=== PATIENT | male | born 1940 | race Caucasian/White ===

== ENCOUNTER 2019-12-30 16:18 | Observation (INO) ==
--- NOTE | 2019-12-30 17:12 | DR.CP ---
HPI Time Seen Time Seen by Provider: 12/30/19 17:11 PCP Primary Care Physician: Taj HPI Comment HPI Comment: PATIENT IS 79YR OLD MALE IN ER WITH CHEST PAIN AND INCREASING SOB TIMES ONE DAY. ONE DAY. PATIENT HAVE HISTORY OF HYPERTENSION AND DIABETES. CHEST PAIN IS PRESSURE, TIGHTNESS 8/10 RADIATING TO THE BACK ASSOCIATED WITH SOB AND WEAKNESS. DENIES FEVER OR TRAUMA. PAIN IS GETTING WORSE. DENIES RECENT TRAVEL OR CONTACT WITH SOME ONE SICK. Complaint Chief Complaint Doctor Comments: INCREASING SOB AND CHEST PAIN. Chief Complaint:: Chest pain, shortness of breath COVID-19 Coronavirus risk:travel/contact w/high risk person: No Has patient experienced Coronavirus symptoms: No Coronavirus symptoms experienced: Shortness of Breath Reviewed Nurses Notes Review: Yes Source History Provided: Patient and Family Member Mode of Arrival Mode of Arrival: Ambulatory Timing Onset of Chief Complaint: 12/29/19 Came on: Suddenly Duration Duration: Constant Duration: Days Location Location of Chest Pain: Left and Chest Chest Pain Radiation Location: Back Context Onset: At rest Cardiac Risk Factors: HTN and Diabetes PE Risk Factors: None History of: None Prehospital Care: None Quality Quality: Sharp and Pleuritic Severity Severity: Moderate Modifying Factors Worsens: Exertion Impoves: Rest Associated Signs and Symptoms Associated Signs and Symptoms: Shortness of Breath PMH PMH Past Medical History: Yes Past Medical History: Diabetes and Hypertension Past Medical History Comment: prostate ca Past Surgical History: No Surgical History: Cholecystectomy Past Surgical History Comment: knee replacement, foot, blot clot Family History History of Family Medical Conditions: Yes Family Medical History: Diabetes Mellitus and [place] Social History Alcohol Use: None Do you use any recreational Drugs:: No Lives With: Alone Lives Where: Home Infectious screening In the last 2 months have you had wt loss of >10#?: NO Have you had fever, night sweats or hemotysis?: No Have you traveled outside the country in the last 6 months?: No Isolation: Standard ROS Review of Systems Constitutional: See HPI, Weakness and Fatigue; negative Fever Eyes: No Symptoms Reported and See HPI; negative Blurred Vision and Diplopia ENTM: No Symptoms Reported, See HPI and Nose Congestion; negative Ear Pain, Nose Discharge and Throat Pain Respiratoy: See HPI, Non-Productive Cough and Short of Breath; negative Wheezing Cardiovascular: See HPI and Chest Pain; negative Edema and Palpitations Gastrointestinal/Abdominal: No Symptoms Reported and See HPI; negative Abdominal Pain, Diarrhea, Nausea and Vomiting Genitourinary: No Symptoms Reported and See HPI; negative Dysuria, Frequency and Hematuria Neurological: See HPI and Weakness; negative Headache and Dizziness Musculoskeletal: No Symptoms Reported and See HPI; negative Back Pain and Muscle Pain Integumentary: No Symptoms Reported and See HPI; negative Change in Color, Rash and Juandice Hematologic/Lymphatic: No Symptoms Reported and See HPI; negative Easy Bruising and Swollen Glands Endocrine: No Symptoms Reported and See HPI; negative Increased Thirst and Incre ased Urine Psychiatric: No Symptoms Reported and See HPI All Other Systems: Reviewed and Negative PE Vitals Vitals: Temperature 98.5 F Pulse Rate 80 Respiratory Rate 16 Blood Pressure [Left Arm] 181/93 Blood Pressure 141/67 O2 Sat by Pulse Oximetry 97 General Limitations: No Limitations General Appearance: Alert and In No Apparent Distress Head Head Exam: Normal Inspection and Atraumatic Eyes Eye exam: Normal Appearance and PERRL; negative Scleral Icterus and Conjunctival Injection ENT ENT Exam: Normal Exam, Normal Oropharynx, Normal External Ear Exam and TM's Normal Bilaterally Chest Chest Inspection: Normal Inspection and Symmetric Chest Wall Rise; negative Tenderness Respiratory Respiratory Exam: Normal Lung Sounds Bilat, Accessory Muscle Use and Chest Wall Tenderness; negative Respiratory Distress Respiratory Exam: Bilateral: Rhonchi and Lower: Rhonchi Cardiovascular Cardiovascular Exam: Regular Rate, Normal Rhythm and Normal Heart Sounds; negative Systolic Murmur and Diastolic Murmur Pulse: Normal Edema: Normal Abdominal Exam Abdominal Exam: Normal Inspection, Normal Bowel Sounds and Soft; negative Tenderness Extremities Extremities Exam: Normal Inspection and Normal Capillary Refill; negative Tenderness, Edema and Calf Tenderness Back Back Exam: Normal Inspection; negative (R) CVA Tenderness and (L) CVA Tenderness Neurologic Neurological Exam: Alert, Oriented X3 and CN II-XII Intact; negative Motor Se nsory Deficit Psychiatric Psychiatric Exam: Normal Affect and Normal Mood Skin Skin Exam: Warm, Dry, Intact and Normal Color MDM Differential Diagnosis Differential Diagnosis: Angina, Chest Wall Pain, CHF, Myocardial Infarction, Pericarditis, Pleuritis, Pneumonia, Pneumothorax and Pulmonary Embolus COURSE Treatment Treatment: SEE ORDERS. PEPCID 20MG IV AND ASA CHEWABLE PO. Consultation Consultation Comments: DISCUSS PATIENT WITH JAIME AND HE WILL ADMIT PATIENT. Education/Counseling Education/Counseling: Patient Educated On: Diagnosis ROR Labs Reviewed Laboratory Results Reviewed?: Yes Result Diagrams: 07/03/20 04:08 12/31/19 04:08 Laboratory: WBC 7.3 X10^3/uL (3.6-10.0) 12/30/19 17:44 RBC 4.83 X10^6/uL (4.7-6.0) 12/30/19 17:44 Hgb 13.5 g/dL (13.5-18.0) 12/30/19 17:44 Hct 41.1 % (42.0-54.0) L 12/30/19 17:44 MCV 85.3 fL (80.0-100.0) 12/30/19 17:44 MCH 28.0 pg (27.0-34.0) 12/30/19 17:44 MCHC 32.8 g/dL (33.0-35.0) L 12/30/19 17:44 RDW 13.8 % (11.6-16.5) 12/30/19 17:44 Plt Count 174 X10^3/uL (150.0-450.0) 12/30/19 17:44 MPV 8.6 fL (7.4-11.0) 12/30/19 17:44 Neut % (Auto) 75.7 % (42.0-75.0) H 12/30/19 17:44 Lymph % (Auto) 14.7 % (21.0-51.0) L 12/30/19 17:44 [place] % (Auto) 9.0 % (0.0-13.0) 12/30/19 17:44 Eos % (Auto) 0.3 % (0.9-2.9) L 12/30/19 17:44 Baso % (Auto) 0.3 % (0.2-1.0) 12/30/19 17:44 Neut # (Auto) 5.5 x10^3/uL (2.2-4.8) H 12/30/19 17:44 Lymph # (Auto) 1.1 X10^3/uL (1.3-2.9) L 12/30/19 17:44 [place] # (Auto) 0.7 x10^3/uL (0.3-0.8) 12/30/19 17:44 Eos # (Auto) 0.0 x10^3/uL (0.0-0.2) 12/30/19 17:44 Baso # (Auto) 0.0 X10^3/uL (0.0-0.1) 12/30/19 17:44 Absolute Nucleated RBC 0.0 /100WBC 12/30/19 17:44 PT 14.5 SECONDS (11.8-14.3) 12/30/19 17:44 INR Target Range - 12/30/19 17:44 INR 1.17 (0.8-1.3) 12/30/19 17:44 APTT 36.8 SECONDS (22.9-36.5) H 12/30/19 17:44 PTT Comment - 12/30/19 17:44 D-Dimer 649 ng/mL (0-400) H* 12/30/19 17:44 Sodium 137 mmol/L (136-145) 12/30/19 17:44 Corrected Sodium 139 mmol/L (136-145) 12/30/19 17:44 Potassium 3.9 mmol/L (3.5-5.1) 12/30/19 17:44 Chloride 102 mmol/L (98-107) 12/30/19 17:44 Carbon Dioxide 23.1 mmol/L (21-32) 12/30/19 17:44 BUN 35 mg/dL (7-18) H 12/30/19 17:44 Creatinine 2.04 mg/dL (0.70-1.30) H 12/30/19 17:44 Est GFR (MDRD) Af Amer 41 (>60) L 12/30/19 17:44 Est GFR (MDRD) Non-Af 34 (>60) L 12/30/19 17:44 Glucose 185 mg/dL (65-99) H 12/30/19 17:44 Calcium 9.8 mg/dL (8.5-10.1) 12/30/19 17:44 Corrected Calcium TNP 12/30/19 17:44 Magnesium 1.9 mg/dL (1.7-2.9) 12/30/19 17:44 Total Bilirubin 0.40 mg/dL (0.2-1.0) 12/30/19 17:44 AST 23 Units/L (15-37) 12/30/19 17:44 ALT 32 Units/L (12-78) 12/30/19 17:44 Alkaline Phosphatase 152 Units/L (46-116) H 12/30/19 17:44 Creatine Kinase 99 Units/L (39-308) 12/30/19 19:50 CK-MB (CK-2) 1.8 ng/mL (0-4.0) 12/30/19 19:50 CK/CKMB % Calc 1.8 % (<4) 12/30/19 19:50 Troponin I < 0.02 ng/mL (0-1.5) 12/30/19 19:50 Total Protein 7.5 g/dL (6.4-8.2) 12/30/19 17:44 Albumin 3.9 g/dL (3.4-5.0) 12/30/19 17:44 Globulin 3.6 g/dL (2.5-4.5) 12/30/19 17:44 Albumin/Globulin Ratio 1.1 Ratio (1.1-2.1) 12/30/19 17:44 SARS-CoV-2 (PCR) Negative (NEGATIVE) 12/30/19 20:28 XRAY XRAY Interpreted by: Radiologist (REPORT NOTED AND DISCUSSED WITH PATIENT.) and Self (SEE REPORT.) EKG Rate: 99 [place]: Normal Rhythm: NSR Block: None Hypertrophy: None ST: Old, Ant, Lat and Infarct Opioid Opioid Risk Tool Age (Manjeet box if 16-45): No History of Preadolescent Sexual Abuse: No Total: 0 Total Score Risk Category: Low Risk Copyright: Eliceo MORALES predicting aberrant behaviors Diagnosis Discharge Problem: Elevated d-dimer Chest pain Qualifiers: Chest pain type: other chest pain Qualified Code(s): R07.89 - Other chest pain Instructions Instructions: Nonspecific Chest Pain, [id number] Chest Wall Pain, Shey-[id number] Forms: Excuse From Work Precautions for COVID19 Patient Portal Social Distancing
--- NOTE | 2019-12-30 17:52 | RAD ---
HISTORYChest pain, shortness of breathSTUDYCHEST, 1 VIEWCOMPARISONNoneFINDINGSThe trachea is midline. The cardiac silhouette is at the upper limits of normal. The lungs are relatively clear without focal infiltrate or effusion. Elevation of the hemidiaphragm is noted. Surgical clips project over the right upper quadrant the abdomen.IMPRESSIONNo acute cardiopulmonary disease.Electronically signed by: YUMIKO BAGLEY (Dec 30, 2019 17:50:22)
[2019-12-30 17:55] LABS: BASOPHILS % (AUTO) 0.3 % (0.2-1.0); EOSINOPHILS % (AUTO) 0.3 % (0.9-2.9); HEMATOCRIT 41.1 % (42.0-54.0); HEMOGLOBIN 13.5 g/dL (13.5-18.0); LYMPHOCYTES # (AUTO) 1.1 X10^3/uL (1.3-2.9); LYMPHOCYTES % (AUTO) 14.7 % (21.0-51.0); MEAN CORPUSCULAR HGB CONC 32.8 g/dL (33.0-35.0); MEAN CORPUSCULAR VOLUME 85.3 fL (80.0-100.0); MEAN PLATELET VOLUME 8.6 fL (7.4-11.0); MONOCYTES # (AUTO) 0.7 x10^3/uL (0.3-0.8); NEUTROPHILS # (AUTO) 5.5 x10^3/uL (2.2-4.8); NEUTROPHILS % (AUTO) 75.7 % (42.0-75.0); PLATELET COUNT 174 X10^3/uL (150.0-450.0); RED BLOOD COUNT 4.83 X10^6/uL (4.7-6.0); RED CELL DISTRIBUTION WIDTH 13.8 % (11.6-16.5); WHITE BLOOD COUNT 7.3 X10^3/uL (3.6-10.0)
[2019-12-30 18:18] LABS: BLOOD UREA NITROGEN 35 mg/dL (7-18); CALCIUM 9.8 mg/dL (8.5-10.1); CARBON DIOXIDE 23.1 mmol/L (21-32); CHLORIDE 102 mmol/L (98-107); COR NA(FOR HYPERGLY) 139 mmol/L (136-145); CREATININE 2.04 mg/dL (0.70-1.30); SODIUM 137 mmol/L (136-145); TROPONIN I < 0.02 ng/mL (0-1.5); eGFR NON BLACK RACES 34 (>60)
[2019-12-30 18:22] LABS: ALANINE AMINOTRANSFERASE 32 Units/L (12-78); ALBUMIN 3.9 g/dL (3.4-5.0); ALKALINE PHOSPHATASE 152 Units/L (46-116); ASPARTATE AMINO TRANSFERASE 23 Units/L (15-37); CREATINE KINASE 99 Units/L (39-308); MAGNESIUM 1.9 mg/dL (1.7-2.9); TOTAL PROTEIN 7.5 g/dL (6.4-8.2)
[2019-12-30] MEDS ORDERED: PEPCID 20 MG IV PREMIX* 20 MG/50 ML BAG IV ONE ×2 (19:38→19:46)
[2019-12-30] MEDS ORDERED: ASPIRIN 81 MG CHEWTAB PO ONE (19:40)
[2019-12-30] MEDS ORDERED: ASPIRIN 81 MG CHEWTAB ONE ×2 (19:46→19:47)
[2019-12-30 20:20] LABS: CKMB % 1.8 % (<4); CREATINE KINASE 99 Units/L (39-308); CREATINE KINASE MB 1.8 ng/mL (0-4.0); TROPONIN I < 0.02 ng/mL (0-1.5)
[2019-12-31] MEDS ORDERED: LEVSIN/MAALOX/LIDOC VISC PO ONE (01:11)
[2019-12-31] MEDS ORDERED: LEVSIN/MAALOX/LIDOC VISC ONE (01:21)
[2019-12-31 02:01] VITALS: BMI 23.7
[2019-12-31] MEDS: NS 1000 ML 1,000 ML IV SCH ×2 (03:45→12:52)
[2019-12-31 05:45] LABS: BASOPHILS % (AUTO) 0.6 % (0.2-1.0); EOSINOPHILS # (AUTO) 0.1 x10^3/uL (0.0-0.2); EOSINOPHILS % (AUTO) 1.2 % (0.9-2.9); HEMATOCRIT 39.8 % (42.0-54.0); LYMPHOCYTES % (AUTO) 12.9 % (21.0-51.0); MEAN CORPUSCULAR HGB CONC 32.8 g/dL (33.0-35.0); MEAN CORPUSCULAR VOLUME 85.3 fL (80.0-100.0); MEAN PLATELET VOLUME 9.7 fL (7.4-11.0); MONOCYTES # (AUTO) 0.7 x10^3/uL (0.3-0.8); MONOCYTES % (AUTO) 8.3 % (0.0-13.0); NEUTROPHILS # (AUTO) 6.1 x10^3/uL (2.2-4.8); PLATELET COUNT 174 X10^3/uL (150.0-450.0); RED BLOOD COUNT 4.67 X10^6/uL (4.7-6.0); RED CELL DISTRIBUTION WIDTH 13.7 % (11.6-16.5); WHITE BLOOD COUNT 7.9 X10^3/uL (3.6-10.0)
[2019-12-31 06:13] LABS: ALANINE AMINOTRANSFERASE 31 Units/L (12-78); ALBUMIN 3.6 g/dL (3.4-5.0); ALKALINE PHOSPHATASE 139 Units/L (46-116); ASPARTATE AMINO TRANSFERASE 26 Units/L (15-37); BLOOD UREA NITROGEN 31 mg/dL (7-18); CALCIUM 9.8 mg/dL (8.5-10.1); CARBON DIOXIDE 25.5 mmol/L (21-32); CHLORIDE 102 mmol/L (98-107); CKMB % 1.7 % (<4); COR NA(FOR HYPERGLY) 139 mmol/L (136-145); CREATINE KINASE 85 Units/L (39-308); CREATINE KINASE MB 1.4 ng/mL (0-4.0); CREATININE 1.78 mg/dL (0.70-1.30); SODIUM 137 mmol/L (136-145); TOTAL PROTEIN 7.1 g/dL (6.4-8.2); TROPONIN I < 0.02 ng/mL (0-1.5); eGFR NON BLACK RACES 40 (>60)
[2019-12-31] MEDS ORDERED: ZOFRAN INJ 4 MG VIAL IVP ONE (07:48)
[2019-12-31] MEDS ORDERED: LEVSIN/MAALOX/LIDOC VISC PO PRN (07:49)
[2019-12-31] MEDS ORDERED: ZOFRAN INJ 4 MG VIAL ONE (07:50)
[2019-12-31] MEDS ORDERED: DAPAGLIFLOZIN 5 MG PO SCH (09:00)
[2019-12-31] MEDS ORDERED: VITAMIN C PO SCH (09:00)
[2019-12-31] MEDS ORDERED: PATIENT'S HOME MEDICATION (Vitamin E 400 UNIT) PO SCH (09:00)
[2019-12-31] MEDS ORDERED: ELIQUIS PO SCH (09:00)
[2019-12-31] MEDS ORDERED: PROTONIX INJ 40 MG VIAL IVP SCH (09:00)
[2019-12-31] MEDS ORDERED: NexIUM PO SCH (09:00)
--- NOTE | 2019-12-31 09:51 | NM ---
[facility] medicine ventilation-perfusion [id number] millicuries DTPA inhalation. 5.6 millicuries technetium 99 MAA IV.Perfusion images show uniform uptake without wedge-shaped defects. Ventilatory images show fairly symmetric uniform uptake.IMPRESSIONLow probability study.Electronically signed by: Giovanni Woods (Dec 31, 2019 09:49:49)
[2019-12-31 11:20] LABS: BILIRUBIN,URINE NEGATIVE (NEGATIVE); BLOOD/HEMOGLOBIN,URINE 1+ (NEGATIVE); GLUCOSE, URINE 4+ (NEGATIVE); KETONES,URINE NEGATIVE (NEGATIVE); LEUKOCYTE ESTERASE ,URINE NEGATIVE (NEGATIVE); NITRITES,URINE NEGATIVE (NEGATIVE); PROTEIN,URINE 2+ (NEGATIVE); UROBILINOGEN,URINE NORMAL (NORMAL)
[2019-12-31 11:28] LABS: APPEARANCE,URINE CLEAR (CLEAR); BACTERIA,URINE NEGATIVE /HPF (NEGATIVE); COLOR,URINE YELLOW (YELLOW); RBC,URINE 0-2 /HPF (0-3); SQUAMOUS EPITHELIAL CELL,UR RARE /HPF (NEGATIVE)
[2019-12-31 12:13] LABS: CKMB % 1.8 % (<4); CREATINE KINASE 79 Units/L (39-308); CREATINE KINASE MB 1.4 ng/mL (0-4.0); TROPONIN I < 0.02 ng/mL (0-1.5)
[2019-12-31 12:37] VITALS: BP 156/86
== END 2019-12-31 13:08 | disposition home or self-care (01) ==
LOC: OBS 16:24 → ER 16:24 → OBS 12-31 00:25
PROVIDERS: ADMIT Family Medicine; ATTEND Internal Medicine
CPT/HCPCS: 36415; 71010; 71045; 78582; 80053; 81001; 82550; 82553; 83735; 84484; 85025; 85378; 85610; 85730; 87635; 93005; 94760; 96365; 96367; 99284; A4222; C9113; G0378; J2405; J7030; S0028